=== PATIENT | female | born 2000 | race Caucasian/White ===

== ENCOUNTER 2025-01-28 13:00 | Emergency (ER) | payer OTHER ==
[~2025-01-28] VITALS: Ht 154.9 cm; Wt 54.5 kg
[2025-01-28 13:03] VITALS: BP 120/74; PULSE 80; RESP 18; TEMP 98; O2SAT 99
[2025-01-28] MEDS ORDERED: ALBU18HF12 IH (15:05)
== END 2025-01-28 15:56 | disposition home or self-care (01) ==
LOC: EMS 13:02
DX: R06.00 Dyspnea, unspecified (principal); B07.9 Viral wart, unspecified; J45.909 Unspecified asthma, uncomplicated; Z88.0 Allergy status to penicillin; Z79.899 Other long term (current) drug therapy
CPT/HCPCS: 99283; Z7502